=== PATIENT | female | born 1945 | race Caucasian/White ===

== ENCOUNTER 2018-12-16 20:07 | Inpatient (IN) ==
[2018-12-16] MEDS ORDERED: LABETALOL IV ONE (20:59)
[2018-12-16 21:20] LABS: BASO# 0.05 X1000 (0.0-0.2); BASO% 0.7 % (0.0-0.8); EOS# 0.21 X1000 (0.0-0.7); EOS% 2.8 % (0.0-10.0); HEMATOCRIT 36.2 % (37.0-47.0); HEMOGLOBIN 11.6 g/dL (12.0-16.0); IMM GRAN# 0.02 X1000 (0.0-0.04); IMM GRAN% 0.3 % (0.0-0.5); LYMPH# 2.45 X1000 (1.2-3.4); LYMPH% 32.3 % (20.5-51.1); MCH 27.1 PG (27-31); MCV 84.6 FL (81-99); MONO# 0.61 X1000 (0.11-0.59); MPV 10.1 FL (7.4-10.4); NEUT# 4.24 X1000 (1.4-6.5); NEUT% 55.9 % (42.2-75.2); PLT 232 X1000 (130-400); RBC 4.28 XMIL (4.2-5.4); RDW 14.9 % (11.5-14.5); WBC 7.58 X1000 (4.8-10.8)
[2018-12-16] MEDS ORDERED: CATAPRES PO ONE (21:26)
--- NOTE | 2018-12-16 21:33 | Diag Imaging Result Doc PS360 ---
EXAM: CT HEAD W/O CONTRAST HISTORY: headache, elevated blood pressure TECHNIQUE: CT head without contrast COMPARISON: 09/05/2016 FINDINGS: No parenchymal hemorrhage. No epidural or subdural hematoma. No subarachnoid hemorrhage. There are chronic microvascular ischemic changes. No mass identified on this noncontrasted exam. No hydrocephalus. No sinus opacification. IMPRESSION: No hemorrhage. Chronic microvascular ischemic changes. This exam was performed using automated exposure control, adjustment of mA or kV according to patient size, and/or use of iterative reconstruction technique. Electronically signed by Tee Banda 12/16/2018 9:30 PM
--- NOTE | 2018-12-16 21:36 | Diag Imaging Result Doc PS360 ---
EXAM: CHEST-PORTABLE HISTORY: dyspnea TECHNIQUE: Portable chest single view COMPARISON: 03/20/2018 FINDINGS: The lungs are well expanded. The heart is not enlarged. The vessels are not distended. There are no infiltrates. No effusion identified. There has been surgery to the lower neck. IMPRESSION: Negative exam. Electronically signed by Tee Banda 12/16/2018 9:33 PM
[2018-12-16 21:38] LABS: AGAP 13; ALB/GLOB RATIO 1.6; ALBUMIN 4.7 g/dL (3.5-5.0); ALKALINE PHOSPHATASE 121 U/L (32-104); BUN 17 mg/dL (8-22); CALCIUM 9.3 mg/dL (8.8-10.2); CHLORIDE 106 mmol/L (98-107); COSMO 288; CREATININE 0.7 mg/dL (0.5-0.9); ESTIMATED GFR > 60; GLUCOSE 155 mg/dL (70-104); GOT 24 U/L (10-30); GPT 17 U/L (10-36); POTASSIUM 3.3 mmol/L (3.5-5.1); SODIUM 142 mmol/L (136-145); TCO2 23 mmol/L (25-35); TOTAL BILIRUBIN 0.24 mg/dL (0.20-1.00); TOTAL PROTEIN 7.6 g/dL (6.3-8.3)
--- NOTE | 2018-12-16 23:33 | PROVIDER DOCUMENTATION ---
This chart was entered by Padmaja Miranda Scribe, acting as scribe for Jackie Nolan MD. HPI-General Adult - General Chief Complaint: Shortness of Breath Stated Complaint: skull pain Time Seen by Provider: 12/16/18 20:59 Source: patient Allergies/Adverse Reactions: Patient Allergies Allergy/AdvReac Type Severity Reaction Status Date / Time Corticosteroids Allergy Severe RASH Verified 12/16/18 21:45 (Glucocorticoids) cephalexin monohydrate * Allergy RASH Verified 12/16/18 21:45 [From Keflex] codeine Allergy RASH Verified 12/16/18 21:45 Home Medications: Home Medication List Medication Instructions Recorded Confirmed Last Taken Type Esomeprazole [Nexium] 40 mg PO DAILY 11/10/15 12/16/18 08/26/18 04:30 History Metoprolol [Lopressor] 100 mg PO DAILY 11/10/15 12/16/18 08/26/18 04:30 History Sertraline HCl [Zoloft] 100 mg PO DAILY 11/10/15 12/16/18 08/25/18 20:00 History Metformin [Glucophage] 500 mg PO DAILY 03/20/18 12/16/18 08/25/18 History ATORVAstatin [Lipitor] 40 mg PO DAILY 08/22/18 12/16/18 08/25/18 20:00 History Diclofenac 1% Gel [Voltaren 1% Gel] 2 gm TOP PRN PRN 08/22/18 12/16/18 Unknown History Furosemide 20 mg PO DAILY 08/22/18 12/16/18 08/26/18 04:30 History Ticagrelor [Brilinta] 90 mg PO DAILY 08/22/18 12/16/18 08/25/18 History Triamterene/Hydrochlorothiazid 1 each PO DAILY 08/22/18 12/16/18 08/26/18 04:30 History [Triamterene-Hctz 37.5-25 mg Tb] - History of Present Illness -Gen Adult Nature of Presenting Problems: 73 yof c/o headache starting last wk and sob 1.5 hrs ago. pt bp high 224/100. pt denies cp, nvd and fever. pt has hx of 2 cardiac stents, and dm. Review of Systems - Adult - REVIEW OF SYSTEMS - ADULT Constitutional: reports: no symptoms reported. denies: chills, fever, fatique Eyes: reports: no symptoms reported Ears, Nose, Mouth & Throat: reports: no symptoms reported Cardiovascular: reports: see HPI, other (high bp 224/100). denies: chest pain, heart murmur, irregular heart rate Respiratory: reports: see HPI, shortness of breath. denies: cough, hemoptysis, pleurisy Gastrointestinal: reports: no symptoms reported. denies: diarrhea, nausea, vomiting Genitourinary: reports: no symptoms reported Musculoskeletal: reports: no symptoms reported Integumentary: reports: no symptoms reported Neurological: reports: see HPI, headache/migraines. denies: loss of balance, numbness, syncope Psychiatric: reports: no symptoms reported Endocrine: reports: no symptoms reported Hematologic/Lymphatic: reports: no symptoms reported Allergic/Immunologic: reports: no symptoms reported All Other Systems: Reviewed and Negative Past History - Adult - PAST MEDICAL HISTORY-ADULT Review of Records: reports: Old Records Reviewed, Nursing Assessment Review, Medications Reviewed, Social history reviewed & non-contributory. Major Childhood Illnesses: reports: denies history Cardiovascular: reports: HTN, hyperlipidemia Respiratory: reports: denies history Gastrointestinal: reports: GERD Obstetrical/Gynecological: reports: denies history Genitourinary: reports: denies history Musculoskeletal: reports: denies history Neurological: reports: denies history Endocrine/Immune: reports: Diabetes Other Conditions: reports: denies history - IMMUNIZATION STATUS Childhood Immunizations: See Nurse Assessment Flu Vaccine: See Nurse Assessment - FAMILY HISTORY Family History: reviewed, not pertinent - SOCIAL HISTORY Smoking: non-smoker Substance Use: alcohol Alcohol Use Frequency: rarely Physical Exam-General - PHYSICAL EXAM-ADULT Initial Vital Signs Reviewed: Yes - CONSTITUTIONAL General Appearance: appears well, alert, no apparent distress - EYES Eyes: PERRL/EOMI, pink conjunctivae - HEAD, EARS, NOSE, MOUTH & THROAT HENMT: normocephalic/atraumatic, moist mucous membranes, normal ENT inspection - NECK Neck: non-tender, full range of motion, supple, normal inspection - RESPIRATORY Respiratory: chest non-tender, lungs clear, normal breath sounds, no pleuratic chest pain, no respiratory distress, no accessory muscle use. negative: respiratory distress, decreased breath sounds, wheezing - CARDIOVASCULAR Cardiovascular: normal peripheral pulses, regular rate, rhythm, no edema, no gallop, no JVD, no murmur. negative: JVD, bradycardia, tachycardia, extra beats - GASTROINTESTINAL (ABDOMEN) Abdominal Exam: normal bowel sounds, non tender, soft - LYMPHATIC Lymphatic: no adenopathy - MUSCULOSKELETAL Back Exam: normal inspection, no CVA tenderness, no vertebral tenderness Extremity: normal range of motion, non-tender, normal inspection Peripheral Pulses: radial (R): 2+, radial (L): 2+ - SKIN Integumentary: normal color, normal turgor, warm/dry - NEUROLOGIC Neurologic: grossly normal, no motor/sensory deficits - PSYCHIATRIC Psych/Mental Status: normal mood/affect, normal thought content, normal thought process, oriented x 3 Progress - PLAN OF CARE/RESULTS Progress/Plan/Lab Results: Vital Signs - 8 hr 12/16/18 20:12 Temperature 98.3 F Pulse Rate 61 Respiratory Rate 18 Blood Pressure 193/109 O2 Sat by Pulse Oximetry 97 Result Diagrams: 12/16/18 20:33 12/16/18 20:33 - EKG 1 Time of EKG reading by physician:: 20:38 EKG Read and Signed by:: Jackie Nolan EKG Interpretation (*Must complete 3 of following elements*): Abnormal Rate: 60 Rhythm: SR w/PSC [place]: right ST Wave: non-specific ST changes (t wave abnromality consider inferior ischemia) - XRAY 1 XRAY: Bilateral XRAY Study: Chest ( EXAM: CHEST-PORTABLE HISTORY: dyspnea TECHNIQUE: Portable chest single view COMPARISON: 03/20/2018 FINDINGS: The lungs are well expanded. The heart is not enlarged. The vessels are not distended. There are no infiltrates. No effusion identified. There has been surgery to the lower neck. IMPRESSION: Negative exam. Electronically signed by Tee Banda 12/16/2018 9:33 PM) Impression: Normal Comparison with other Films: no changes - CT/MRI 1 CT Study: Head ( EXAM: CT HEAD W/O CONTRAST HISTORY: headache, elevated blood pressure TECHNIQUE: CT head without contrast COMPARISON: 09/05/2016 FINDINGS: No parenchymal hemorrhage. No epidural or subdural hematoma. No subarachnoid hemorrhage. There are chronic microvascular ischemic changes. No mass identified on this noncontrasted exam. No hydrocephalus. No sinus opacification. IMPRESSION: No hemorrhage. Chronic microvascular ischemic changes. This exam was performed using automated exposure control, adjustment of mA or kV according to patient size, and/or use of iterative reconstruction technique. Electronically signed by Tee Banda 12/16/2018 9:30 PM) Impression: Normal - CONSULTS/PCP/HOSPITALIST Notification #1 *Consult/PCP/Hospitalist*: Dr Ahuja Consult Disposition: Admit (admit for observation) Departure - Departure Date of Disposition Decision: 12/16/18 Time of Disposition Decision: 23:31 DIAGNOSIS: Dyspnea on exertion, Hypertension, accelerated, Headache Disposition: ADMITTED INPATIENT 09 Certified Medical Emergency: Emergent Condition: Good Referrals and Follow-Ups: Ann Bray MD [Primary Care Provider] - Discharge Education: Migraine Headache, [id number] - Critical Care Note This patient required my direct & personal management of CC.: No Attestation - Physician/ LACY Attestation Patient care was provided by Advanced Practice Provider:: No The physician spent face to face time with patient:: Yes Advanced Practice Provider documentation review:: Supervising physician onsite and consulted in the evaluation and care of this patient. The physician did have a face to face encounter with the patient. This chart was documented by the indicated scribe, (Padmaja Miranda Scribe) and accurately reflects the services I performed and decisions made by me, Jackie Nolan MD, as attested by the provider's signature.
[2018-12-17] MEDS ORDERED: VASOTEC IV PRN (01:01)
[2018-12-17] MEDS ORDERED: KLOR-CON PO ONE (01:01)
[2018-12-17] MEDS: TYLENOL PO PRN ×4 (01:38→22:35)
--- NOTE | 2018-12-17 04:42 | HISTORY AND PHYSICAL ---
PRIMARY CARE PHYSICIAN: Dr. Andrade. CHIEF COMPLAINT: Elevated blood pressure, shortness of breath x1 day. HISTORY OF PRESENTING ILLNESS: The patient is a 73-year-old female with a history of diabetes mellitus type 2, coronary disease, hypertension and hyperlipidemia who presented to the emergency department with a 1-day history of having elevated blood pressure. She states that she took her blood pressure home and it was 250/140 or so. She states that she was also having shortness of breath. The patient was evaluated in the emergency department and due to her presenting symptoms it was thought that she would need admission for further management. The patient was given IV antihypertensive agents and her blood pressure had decreased. At time of my examination the patient denied any fever, chills, chest pain, hemoptysis, melena or any weight changes, but complained of headache and shortness of breath. PAST MEDICAL HISTORY: Include diabetes mellitus type 2, hypertension, coronary artery disease, hyperlipidemia, GERD. PAST SURGICAL HISTORY: Hysterectomy, appendectomy, back surgery, cervical fusion, left carpal tunnel surgery, coronary stent, left shoulder surgery. ALLERGIES: Codeine, Keflex, and glucocorticoids. CURRENT MEDICATIONS: Include atorvastatin 40 mg p.o. daily, Nexium 40 mg p.o. daily, Lasix 20 mg p.o. daily, metformin 500 mg p.o. daily, metoprolol 100 mg p.o. daily, Sertraline 100 mg p.o. daily, Brilinta 90 mg p.o. daily, Maxzide 25 mg p.o. daily. SOCIAL HISTORY: No history of smoking. Admits to social alcohol use. Denies any illicit drug use. FAMILY HISTORY: Positive for coronary disease in father. REVIEW OF SYSTEMS: Fourteen point review of systems is as in the HPI. Other systems negative. PHYSICAL EXAMINATION: GENERAL: A cooperative friendly female. She is resting comfortably now. VITAL SIGNS: Temperature 98.3 degrees, pulse 61, respiration 18, blood pressure 193/109. HEENT: Atraumatic and normocephalic. Extraocular movements intact. PERRLA. NECK: No masses. CHEST: Clear to auscultation. CARDIOVASCULAR: Regular rate and rhythm. ABDOMEN: Soft. Positive bowel sounds. EXTREMITIES: No edema. NEUROLOGIC: She is awake, alert and oriented x3. GENITOURINARY: No bladder distention. SKIN: Warm. LABORATORIES AND STUDIES: WBC is 7.58, hemoglobin 11.6, hematocrit 36.2, platelets 232,000. Sodium 142, potassium 3.3, chloride 106, CO2 is 23, BUN is 17, creatinine is 0.7, glucose is 155. Chest x-ray is negative exam. ASSESSMENT: The patient is a 73-year-old female with a history of diabetes mellitus type 2, hypertension, coronary artery disease and hyperlipidemia, who presented to the emergency department due to elevated blood pressure and shortness of breath. She was evaluated in the emergency department due to her presenting symptoms and it was thought that we will place her on observation for further evaluation and management. 1. Hypertensive urgency. 2. Dyspnea, possible anginal equivalent. 3. Diabetes mellitus type 2. 4. Hypertension. PLAN: 1. We will admit the patient to medical floor with telemetry. 2. We will continue with antihypertensive agents. 3. Put the patient on supplemental oxygen and trend her troponins. 4. Consult her aoc operations intelligence officer. 5. Put the patient on glycemic protocol with sliding scale insulin regimen. 6. Restart other home medications. 7. We will continue to follow, reassess and make further recommendation based on the patient's clinical course. We will put the patient on DVT prophylaxis with SCDs. cc: Rosendo Ahuja MD
[2018-12-17 06:15] LABS: BASO# 0.03 X1000 (0.0-0.2); BASO% 0.4 % (0.0-0.8); EOS# 0.22 X1000 (0.0-0.7); EOS% 3.3 % (0.0-10.0); HEMATOCRIT 32.2 % (37.0-47.0); LYMPH# 2.31 X1000 (1.2-3.4); LYMPH% 34.5 % (20.5-51.1); MCH 26.5 PG (27-31); MCHC 31.1 g/dL (33-37); MCV 85.4 FL (81-99); MONO# 0.59 X1000 (0.11-0.59); MONO% 8.8 % (1.7-9.3); MPV 9.7 FL (7.4-10.4); NEUT# 3.54 X1000 (1.4-6.5); PLT 183 X1000 (130-400); RBC 3.77 XMIL (4.2-5.4); WBC 6.69 X1000 (4.8-10.8)
[2018-12-17] MEDS: HUMULIN R SUBQ SCH ×4 (07:05→22:35)
[2018-12-17 07:09] LABS: AGAP 11; BUN 17 mg/dL (8-22); CHLORIDE 102 mmol/L (98-107); COSMO 275; CREATININE 0.7 mg/dL (0.5-0.9); ESTIMATED GFR > 60; GLUCOSE 123 mg/dL (70-104); SODIUM 136 mmol/L (136-145); TCO2 23 mmol/L (25-35)
--- NOTE | 2018-12-17 07:20 | EKG Report ---
Test Performed on : 12/16/2018 8:38:25 PM Test Reason : dyspnea Blood Pressure : / mmHG Vent. Rate : 060 BPM Atrial Rate : 060 BPM P-R Int : 132 ms QRS Dur : 086 ms QT Int : 466 ms P-R-T Axes : 000 175 167 degrees QTc Int : 466 ms Sinus rhythm. with premature supraventricular complexes. Right axis deviation T wave abnormality, consider inferior ischemia Abnormal ECG When compared with ECG of 22-MAR-2018 06:58, premature supraventricular complexes. are now present QRS axis shifted right T wave inversion less evident in Inferior leads Unconfirmed Result
[2018-12-17 08:22] LABS: URINE SOURCE CLEAN CATCH
[2018-12-17] MEDS: LASIX PO SCH (08:27)
[2018-12-17] MEDS: ZOLOFT PO SCH (08:27)
[2018-12-17] MEDS: MAXZIDE-25 PO SCH (08:27)
[2018-12-17] MEDS: LIPITOR PO SCH (08:27)
[2018-12-17] MEDS: NEXIUM PO SCH (08:27)
[2018-12-17 08:34] LABS: BILIRUBIN URINE NEGATIVE (NEGATIVE); BLOOD URINE NEGATIVE (NEGATIVE); COLOR YELLOW; GLUCOSE URINE NEGATIVE (NEGATIVE); KETONE URINE NEGATIVE (NEGATIVE); LEUKOCYTES URINE LARGE (NEGATIVE); NITRITE URINE NEGATIVE (NEGATIVE); PROTEIN URINE 30 mg/dL (NEGATIVE); SP GRAVITY URINE 1.017; TURBIDITY URINE HAZY (CLEAR); UR EPITHELIAL CELLS <10 /HPF (<10); URINE BACTERIA 4+ /HPF; URINE RBC <10 /HPF (<10); URINE WBC 20-40 /HPF (<10); UROBILINOGEN URINE NORMAL (NORMAL)
[2018-12-17] MEDS ORDERED: BRILINTA PO SCH (09:00)
[2018-12-17] MEDS ORDERED: APRESOLINE IV PRN (09:29)
[2018-12-17] MEDS: ASPIRIN PO SCH (12:19)
[2018-12-17] MEDS: LEVAQUIN 500 MG/D5W 500 MG/100 ML IVPB IV SCH (12:19)
--- NOTE | 2018-12-17 12:32 | EKG Report ---
Test Performed on : 12/17/2018 11:28:37 AM Test Reason : Bradycardia Blood Pressure : / mmHG Vent. Rate : 053 BPM Atrial Rate : 053 BPM P-R Int : 124 ms QRS Dur : 088 ms QT Int : 494 ms P-R-T Axes : 047 011 022 degrees QTc Int : 463 ms Sinus bradycardia. Otherwise normal ECG When compared with ECG of 16-DEC-2018 20:38, (Unconfirmed) premature supraventricular complexes. are no longer present QRS axis shifted left T wave inversion no longer evident in Lateral leads Confirmed by Ashok CHOUDHURY, Terry Betancourt ([id number]) on 12/18/2018 10:20:08 AM
--- NOTE | 2018-12-17 14:25 | CARDIOLOGY CONSULTATION ---
DATE: 12/17/2018 REASON FOR CONSULTATION: Cardiology was consulted for accelerated hypertension and shortness of breath. HISTORY OF PRESENT ILLNESS: Ms. Deidra Cruz is a 73-year-old lady with history of diabetes, coronary artery disease, hypertension, comes with complaints of increasing shortness of breath and she also noticed that at home her blood pressure was 250/140 when she came to the emergency room. Blood pressure recorded here was 193/109. She complains of having increasing episodes of shortness of breath and even with minimal exertion to the restroom, she is short of breath. She has had left-sided chest pain. This has been recent. She underwent intervention at [facility] on 03/22/2018. Cardiac enzymes negative. Electrocardiogram revealed sinus bradycardia. There were no acute ST-T changes to suggest ischemia or infarction. There is no history of palpitations. There is no history of syncope. REVIEW OF SYSTEMS: A 14-point review of systems was done. GI: No history of nausea, vomiting, diarrhea. There is no history of hematemesis or melena. Central nervous system: No focal weakness to suggest a CVA or TIA. Genitourinary: No dysuria. She has had renal cyst in the past. PAST MEDICAL HISTORY: 1. Diabetes. 2. Hypertension. 3. Renal cyst. 4. Hyperlipidemia. 5. Gastroesophageal reflux disease. 6. Coronary artery disease. Last cardiac catheterization 03/22/2018: LAD luminal irregularities. Circumflex had a long eccentric 80% to 90% proximal stenosis. Distal circumflex had high-grade stenosis which was treated with a drug-eluting stent. Right coronary artery subtotally occluded in the midportion with mature [id number] collaterals, ejection fraction 50%. HOME MEDICATIONS: Atorvastatin 40, Nexium 40, Lasix 20, metformin 500 mg a day, Brilinta 90 mg b.i.d., metoprolol 100 mg a day, sertraline 100, Maxzide 25. SOCIAL HISTORY: She does not smoke. There is no history of alcohol abuse. FAMILY HISTORY: Positive for coronary artery disease in the father. PHYSICAL EXAMINATION: Vital Signs: Blood pressure at the moment 158/59. HEENT: Atraumatic, normocephalic. Pupils were equal and reacting to light. Neck: Jugular venous pressure was normal. Cardiovascular: First and second heart sounds were heard. There was no S3 gallop. Respiratory: Normal air entry. There is no crepitations or rhonchi. Abdomen: Soft, obese, nontender. There was no guarding or rigidity. Bowel sounds were heard. Central nervous system: Alert and oriented. Was moving all 4 extremities. Extremities: Examination of extremities revealed trace edema. LABORATORY STUDIES: Cardiac enzymes are negative. Laboratory examination otherwise unremarkable. Urine with white blood cells noted. ASSESSMENT: Ms. Deidra Cruz is a 73-year-old lady with history of diabetes, coronary artery disease, hypertension, hyperlipidemia, who comes in with accelerated hypertension. Has increasing shortness of breath with left-sided chest pain. Cardiac enzymes negative. RECOMMENDATIONS: 1. As far as accelerated hypertension, controlled, and we will get a renal duplex done to rule out renal artery stenosis. 2. We will add Cozaar 100 mg to her medical regimen. 3. Given a known coronary artery disease, and increasing symptoms of shortness of breath as this could be angina equivalent, I have set her up to undergo a Lexiscan Cardiolite stress test to rule out ischemia. We will also get an echocardiogram to assess cardiac and valvular function. 4. As far as antiplatelet therapy is concerned, she is on aspirin and Brilinta twice daily. We will continue that. 5. She has been started on Levaquin for urinary tract infection. Continue with the same. 6. Diabetes. She is on metformin. I have not made any changes. 7. Hyperlipidemia. She is on atorvastatin. Thanks for the consult. Will follow hospital course. cc: Aden Granado MD
[2018-12-17] MEDS: LOPRESSOR PO SCH (14:35)
[2018-12-17] MEDS: COZAAR PO SCH (15:11)
[2018-12-17] MEDS: BRILINTA PO SCH (21:54)
[2018-12-18 06:24] LABS: BASO# 0.03 X1000 (0.0-0.2); BASO% 0.5 % (0.0-0.8); EOS# 0.28 X1000 (0.0-0.7); EOS% 4.4 % (0.0-10.0); HEMATOCRIT 36.2 % (37.0-47.0); HEMOGLOBIN 11.3 g/dL (12.0-16.0); LYMPH% 36.3 % (20.5-51.1); MCH 26.8 PG (27-31); MCHC 31.2 g/dL (33-37); MONO# 0.65 X1000 (0.11-0.59); MONO% 10.3 % (1.7-9.3); MPV 10.2 FL (7.4-10.4); NEUT# 3.07 X1000 (1.4-6.5); NEUT% 48.5 % (42.2-75.2); PLT 191 X1000 (130-400); RBC 4.21 XMIL (4.2-5.4); WBC 6.33 X1000 (4.8-10.8)
[2018-12-18 06:47] LABS: AGAP 13; BUN 19 mg/dL (8-22); CALCIUM 9.5 mg/dL (8.8-10.2); CHLORIDE 101 mmol/L (98-107); COSMO 281; CREATININE 0.8 mg/dL (0.5-0.9); ESTIMATED GFR > 60; GLUCOSE 158 mg/dL (70-104); POTASSIUM 3.9 mmol/L (3.5-5.1); SODIUM 138 mmol/L (136-145); TCO2 24 mmol/L (25-35)
[2018-12-18] MEDS: HUMULIN R SUBQ SCH ×4 (06:55→21:06)
[2018-12-18] MEDS ORDERED: LEXISCAN ONE (09:46)
[2018-12-18] MEDS ORDERED: AMINOPHYLLINE ONE (10:01)
[2018-12-18] MEDS: COZAAR PO SCH (10:37)
[2018-12-18] MEDS: ASPIRIN PO SCH (10:37)
[2018-12-18] MEDS: BRILINTA PO SCH ×2 (10:37→21:06)
[2018-12-18] MEDS: LASIX PO SCH (10:38)
[2018-12-18] MEDS: ZOLOFT PO SCH (10:39)
[2018-12-18] MEDS: NEXIUM PO SCH (10:39)
[2018-12-18] MEDS: LOPRESSOR PO SCH ×2 (10:39→12:52)
[2018-12-18] MEDS: LIPITOR PO SCH (10:39)
[2018-12-18] MEDS: MAXZIDE-25 PO SCH (10:39)
[2018-12-18] MEDS: LEVAQUIN 500 MG/D5W 500 MG/100 ML IVPB IV SCH ×2 (13:57→14:56)
--- NOTE | 2018-12-18 14:39 | Diag Imaging Result Document ---
PROCEDURE NAME: MYOCARDIAL PERF SCAN, STR/REST - 12/18/2018 SUMMARY: The patient was administered 12.2 mCi of technetium-99m sestamibi, after which resting cardiac images were obtained. The patient was subsequently administered Lexiscan 0.4 mg intravenously, after which the heart rate went from 62 beats per minute to 95 beats per minute. The blood pressure went from 201/104 to 174/96. Following the administration of Lexiscan, the patient reported some left-sided atypical chest discomfort. Following the administration of Lexiscan, the patient was administered 36.1 mCi of technetium-99 mm sestamibi, after which gated stress cardiac images were obtained. The patient was administered aminophylline 125 mg intravenously thereafter. Chest discomfort resolved. Baseline ECG demonstrated normal sinus rhythm and nonspecific ST and T-wave abnormality. With Lexiscan, baseline ST and T-wave abnormality did not change significantly. SPECT images were reconstructed in the short, horizontal, and vertical long axis. A review of these images demonstrated homogeneous uptake of radiopharmaceutical in both stress and resting images. Gated images demonstrate a calculated left ventricular ejection fraction of 65% with symmetrical wall motion/thickening. CONCLUSIONS: 1. Adequate response to Lexiscan. 2. Clinically, the patient reported left-sided atypical chest discomfort following the administration of Lexiscan. 3. Electrocardiographically, baseline ST and T-wave abnormality did not change significantly following the administration of Lexiscan. 4. Normal Lexiscan sestamibi images. cc: MD Alexandra Mason PA
--- NOTE | 2018-12-18 15:34 | PROGRESS NOTE ---
DATE: 12/18/2018 SUBJECTIVE: This patient is lying comfortably in bed, but she is complaining of left-sided chest pain, around the mid axillary area, painful to palpation, I did not see any rash. She had a stress test today that basically was normal, no signs of ischemia, pending Doppler ultrasound. Her blood pressure is fluctuating between 150s and 180s today. I will wait for the renal ultrasound. We will continue for now with losartan, metoprolol, triamterene, hydrochlorothiazide and as-needed Vasotec. She is also on low dose of Lasix. OBJECTIVE: Vital Signs: Temperature 97.7 degrees, pulse 95, respiratory rate 18, blood pressure 185/95, oxygen saturation 100% on room air. HEENT: Head normocephalic. No trauma. PERRLA. Neck: Supple. No JVD. No masses. Central trachea. Chest: Clear to auscultation. No wheezing. No rales. Cardiovascular: Regular rate and rhythm. She has been having pain at the level of the mid axillary area on the left side at left thoracic area which is painful to palpation. I do not see any rash or lesion in that point. Abdomen: Soft, nontender, nondistended. No hepatosplenomegaly. Extremities: No edema, no clubbing, no cyanosis. Neurological: The patient is alert and oriented x3. No focal deficits. LABORATORY DATA: WBC 6.3, hemoglobin 11.3, hematocrit 36.2, platelets 191,000. Sodium 138, potassium 3.9, chloride 101, bicarbonate 24, BUN 19, creatinine 0.8, glucose 158, calcium 9.5. ASSESSMENT AND PLAN: 1. Hypertensive urgency. Her blood pressure is still elevated and even though she has been on blood pressure medication, she is still having high blood pressure. We added losartan and the blood pressure changed minimally, we are waiting for a renal ultrasound with blood flow to see if she has some kind of stenosis. We did a stress test today that was negative. 2. Coronary artery disease with accelerated hypertension,. We did a stress test today that is negative, she has no overt chest pain at this moment. Cardiac enzymes are negative as well. She is complaining of left-sided chest pain but is painful to palpation. 3. Type 2 diabetes, stable. Continue with same management. 4. Shortness of breath. This is better. We will continue with the same management. cc: Napoleon Temple MD
--- NOTE | 2018-12-18 16:32 | Diag Imaging Result Doc PS360 ---
EXAM: US DUPLEX RENAL ARTY/VEIN LMTD 12/18/2018 HISTORY: severe hypertension, r/o renal artery stenosis TECHNIQUE: Renal ultrasound with renal arterial Doppler COMMENT: The right kidney is 10.3 x 4.9 x 4.6 cm. The renal artery ratio is 1.98 and the resistive index is 0.63. This is within the normal range. The kidney is hyperechoic and there is mild dilatation of the renal collecting system. This has not changed significantly in appearance since 12/04/2017. The left kidney measures 10.5 x 4.9 x 5.3 cm and is also hyperechoic. There are cortical cysts with a 2.6 cm cyst in the upper pole. The renal artery ratio is 1.76 and the resistive index of 0.6 which is also within the normal range. IMPRESSION: Probable medical renal disease. No evidence of obstructive uropathy or renal arterial stenosis. Electronically signed by Andrés Landin 12/18/2018 4:29 PM
[2018-12-18] MEDS: TYLENOL PO PRN (16:49)
[2018-12-18] MEDS: MERREM 1 GM in NS 50 ML IV SCH (19:20)
[2018-12-18] MEDS ORDERED: PNEUMOVAX 23 IM ONE (23:31)
[2018-12-19] MEDS: MERREM 1 GM in NS 50 ML IV SCH ×4 (01:08→17:20)
[2018-12-19] MEDS: TYLENOL PO PRN (01:08)
[2018-12-19] MEDS: HUMULIN R SUBQ SCH ×4 (06:33→22:48)
[2018-12-19 07:11] LABS: BASO# 0.05 X1000 (0.0-0.2); BASO% 0.7 % (0.0-0.8); EOS# 0.42 X1000 (0.0-0.7); HEMATOCRIT 36.3 % (37.0-47.0); HEMOGLOBIN 11.5 g/dL (12.0-16.0); IMM GRAN# 0.03 X1000 (0.0-0.04); IMM GRAN% 0.4 % (0.0-0.5); LYMPH# 2.58 X1000 (1.2-3.4); LYMPH% 36.6 % (20.5-51.1); MCH 27.1 PG (27-31); MCHC 31.7 g/dL (33-37); MCV 85.4 FL (81-99); MONO# 0.59 X1000 (0.11-0.59); MONO% 8.4 % (1.7-9.3); MPV 10.2 FL (7.4-10.4); NEUT# 3.37 X1000 (1.4-6.5); NEUT% 47.9 % (42.2-75.2); PLT 201 X1000 (130-400); RBC 4.25 XMIL (4.2-5.4); WBC 7.04 X1000 (4.8-10.8)
[2018-12-19 07:42] LABS: CALCIUM 9.1 mg/dL (8.8-10.2); POTASSIUM 3.6 mmol/L (3.5-5.1)
[2018-12-19] MEDS: ASPIRIN PO SCH (08:51)
[2018-12-19] MEDS: NEXIUM PO SCH (08:51)
[2018-12-19] MEDS: LIPITOR PO SCH (08:51)
[2018-12-19] MEDS: ZOLOFT PO SCH (08:51)
[2018-12-19] MEDS: MAXZIDE-25 PO SCH (08:51)
[2018-12-19] MEDS: BRILINTA PO SCH ×2 (08:51→22:49)
[2018-12-19] MEDS: LOPRESSOR PO SCH (08:53)
--- NOTE | 2018-12-19 14:38 | PROGRESS NOTE ---
DATE: 12/19/2018 SUBJECTIVE: This patient is lying comfortably in bed. She is feeling a little bit better. She is still complaining of left-sided chest pain around the mid axillary area that is painful to palpation. Her BUN and creatinine increased compared with yesterday and as per the patient her urine is dark, I will stop the furosemide and I will stop the losartan for today, and I will re- evaluate this patient tomorrow again. Blood pressure is better controlled. We will continue with the same management. OBJECTIVE: Vital Signs: Temperature 97.8, pulse 59, respiratory rate 16, blood pressure 142/66. Oxygen saturation 100% on room air. HEENT: Head normocephalic, no trauma. PERRLA. Neck: Supple. No JVD. No masses. Central trachea. Chest: Clear to auscultation. No wheezing. No rales. Cardiovascular: RRR. She is complaining of pain at the level of the left axillary area on the left side, which is painful to palpation. I do not see any lesion or rash at that point. Abdomen: Soft, nontender, nondistended. No hepatosplenomegaly. Extremities: No edema, no clubbing, no cyanosis. Neurologic: The patient is alert and oriented x 3. No focal deficits. LABORATORY: WBC 7, hemoglobin 11.5, hematocrit 36.3, platelets 201,000. Sodium 139, potassium 3.6, chloride 101, bicarbonate 23, BUN 26, creatinine 1, glucose 163, calcium 9.1. ASSESSMENT AND PLAN: 1. Hypertensive urgency, blood pressure is better controlled. We will continue with the same management. Cardiology Department on board. Renal ultrasound within normal limits, no arterial stenosis. 2. Coronary artery disease with accelerated hypertension, as above. She is not complaining of typical chest pain, only pain to palpation at the level of the left axillary area, mid axillary area. Cardiac enzymes are negative as well as the stress test. 3. UTI, we have a positive culture that showed E coli. This patient presented a rash with levofloxacin, so likely this patient is allergic to quinolones. Also, she is allergic to cephalosporins, steroids and codeine, which apparently cause a severe rash. So, for now we will continue with meropenem. 4. Type 2 diabetes, stable. 5. Shortness of breath. This is much better. Continue with same management. 6. Mild acute kidney injury. I will hold the furosemide and losartan for today. I will restart this treatment if the kidney function gets better. cc: Napoleon Temple MD
[2018-12-19] MEDS: ULTRAM PO PRN (17:36)
[2018-12-20] MEDS: ULTRAM PO PRN ×2 (00:12→09:12)
[2018-12-20] MEDS: MERREM 1 GM in NS 50 ML IV SCH ×2 (02:17→09:05)
[2018-12-20] MEDS: HUMULIN R SUBQ SCH ×2 (06:34→10:47)
[2018-12-20 08:07] LABS: AGAP 16; BUN 20 mg/dL (8-22); CALCIUM 9.2 mg/dL (8.8-10.2); CHLORIDE 101 mmol/L (98-107); COSMO 280; CREATININE 0.8 mg/dL (0.5-0.9); ESTIMATED GFR > 60; GLUCOSE 154 mg/dL (70-104); POTASSIUM 4.1 mmol/L (3.5-5.1); SODIUM 137 mmol/L (136-145); TCO2 20 mmol/L (25-35)
[2018-12-20] MEDS: LIPITOR PO SCH (08:57)
[2018-12-20] MEDS: MAXZIDE-25 PO SCH (08:57)
[2018-12-20] MEDS: NEXIUM PO SCH (08:57)
[2018-12-20] MEDS: BRILINTA PO SCH (08:57)
[2018-12-20] MEDS: ZOLOFT PO SCH (08:57)
[2018-12-20] MEDS: ASPIRIN PO SCH (08:58)
[2018-12-20] MEDS: LOPRESSOR PO SCH (08:58)
[2018-12-20] MEDS: TYLENOL PO PRN (09:12)
[2018-12-20] MEDS: COZAAR PO SCH (10:32)
[2018-12-20] MEDS: LASIX PO SCH (10:32)
[2018-12-20 12:18] VITALS: BP 145/72
--- NOTE | 2018-12-21 22:18 | DISCHARGE SUMMARY ---
ADMISSION DATE: 12/18/2018 DISCHARGE DATE: 12/20/2018 DISCHARGE DIAGNOSES: 1. Hypertensive urgency, resolved. 2. Coronary artery disease with accelerated hypertension. 3. Urinary tract infection with a positive culture that showed E coli. 4. Type 2 diabetes. 5. Shortness of breath on presentation, resolved. 6. Mild acute kidney injury, resolved. PROCEDURES PERFORMED: 1. Head CT scan dated 12/16/2018. Impression: No hemorrhage, chronic microvascular ischemic changes. 2. Chest x-ray dated 12/16/2018. Impression: Negative exam. 3. Stress test dated 12/18/2017. Conclusion: Adequate response to Lexiscan. Clinically, the patient reported left-sided atypical chest discomfort following the administration of Lexiscan. Electrocardiographically, baseline ST and T-wave abnormality did not change significantly following the administration of Lexiscan. Normal Lexiscan sestamibi images. 4. Renal ultrasound. Impression: Probably medical renal disease, no evidence of obstructive uropathy or renal arterial stenosis. HOSPITAL COURSE: A 73-year-old, female with a past medical history of diabetes, coronary artery disease, hypertension, hyperlipidemia, presented to the emergency department with 1-day history of elevated blood pressure. She was admitted on 12/17/2018, but I think she presented to the ER on 12/16/2018. Apparently, she took her blood pressure at home and it was around 250/140 or so. She states that she was also having shortness of breath. She came to the emergency department and due to her presenting symptoms, it was thought that she would need admission for further management. She received some IV antihypertensive agents and her blood pressure decreased some. At the moment of the evaluation by the admitting doctor, this patient denied any fever, chills, chest pain, hemoptysis, melena or any weight changes but she was complaining of headache and shortness of breath. She was admitted to the medical floor with telemetry. Cardiology department evaluated this patient and they recommended to start this patient on Cozaar 100 mg daily and given her history of coronary artery disease and increasing symptoms for shortness of breath, which can be angina equivalent, they decided to do a stress test that was normal. Her blood pressure has been elevated so we also did a rule out any renal arterial stenosis. She was improving on a daily basis. She has been complaining of chest pain on the left side below the mid axillary area which is painful to palpation. Initially, we started this patient on Levaquin for her urinary tract infection, but she had a reaction, so she is allergic to quinolones. We switched the antibiotics. Like I said, she was improving on a daily basis. Her blood pressure is much better compared with admission, negative x-ray, stress test and renal ultrasound. Today, I decided to send this patient home. She is in a stable medical condition. She is tolerating p.o. No symptoms today. No shortness of breath. Mild painful to palpation at the level of the left thoracic area. Personally called Dr. Wilder's office to make an appointment and she will be evaluated by Dr. Wilder on 12/25/2018 at 11:15 a.m. At the moment of discharge, the patient was stable. Also, we have a positive culture that showed a urinary tract infection, E coli. She is allergic to Keflex and she is allergic to levofloxacin, so I will put this patient on nitrofurantoin to go home with. As per the patient, she has been having burning sensation on and off, so I will treat it. PHYSICAL EXAMINATION: Vital Signs: Temperature 98.6, pulse 59, respiratory rate 18, blood pressure 145/72, oxygen saturation 100% on room air. HEENT: Head normocephalic. No trauma, PERRLA. Neck: Supple. No JVD. No masses. Central trachea. Chest: Clear to auscultation. No wheezing. No rales. Cardiovascular: Regular rate and rhythm. Abdomen: Soft, nontender, nondistended. No hepatosplenomegaly. Extremities: No edema, no clubbing. No cyanosis. Neurological: The patient is alert and oriented x3. No focal deficits. LABORATORY: Sodium 137, potassium 4.1, chloride 101, bicarbonate 20, BUN 20, creatinine 0.8, glucose 154, calcium 9.2. DISCHARGE MEDICATIONS: Aspirin 81 mg p.o. daily. Lipitor 40 mg p.o. at bedtime. Esomeprazole 40 mg p.o. daily, furosemide 20 mg p.o. daily, losartan 100 mg p.o. daily, metformin 500 mg p.o. with supper, metoprolol 100 mg p.o. daily, nitrofurantoin ER 100 mg p.o. q.12 hours for 5 days, sertraline 100 mg p.o. at bedtime, Brilinta 90 mg p.o. b.i.d., and tramadol 50 mg p.o. q.6 hours as needed for pain. FOLLOWUP: Follow up with Dr. Wilder on 12/25/2018, next Sunday at 11:15 a.m. I gave her an order for lab work, BMP before going to the office. TIME SPENT: Discharging this patient 35 minutes. cc: Napoleon Temple MD
== END 2018-12-20 12:27 | disposition home or self-care (01) | DRG 305 ==
LOC: SUPCPDRO → ED 20:07 → 4N 20:07 → SUATTDRO 12-17 00:47
PROVIDERS: ATTEND Internal Medicine
CPT/HCPCS: 70450; 71010; 71045; 78452; 80048; 80053; 81001; 82948; 83880; 84484; 85025; 87077; 87088; 87186; 93005; 93010; 93017; 93976; 94760; 99285; A9270; A9500; J0280; J0820; J1956; J2185; J2785; XXXXX